=== PATIENT | female | born 1995 | race Caucasian/White ===

== ENCOUNTER 2017-03-24 21:13 | Inpatient (IN) | payer OTHER ==
[~2017-03-24] VITALS: Ht 157.5 cm; Wt 60.3 kg
--- NOTE | ~2017-03-24 | S ---
[facility] [place] [address] SURGICAL PATH RPT PROCEDURE Name: YAMILKA DECKER Room #: 419-P [facility] IN M.R.#: [id number] Admission: 03/24/17 Date of : 89 Discharge: 03/26/17 Report #: [id number] Path Case #: [id number] PATHOLOGY REPORT COLLECTION DATE: 03/25/2017 RECEIVED DATE: 03/25/2017 SUBMITTING PHYS: Dr. Shahbaz Jon, DO OTHER PHYS: SPECIMEN(S) RECEIVED: A.Appendix * * * * * * * * * * * * FINAL DIAGNOSIS: Appendix, appendectomy: - Moderate acute appendicitis. (IUV; 03/27/17) PATHOLOGIST: Talya Johnson M.D. REPORT ELECTRONICALLY SIGNED BY: Talya Johnson M.D. DATE/TIME: 03/27/2017 15:09 * * * * * * * * * * * * GROSS PATHOLOGY: Received in formalin labeled "Yamilka Decker appendix," is an appendix measuring 6.8 cm in length and 0.8 cm in diameter with a moderate amount of attached mesoappendix. The serosal surface is sprague-robison, smooth, and encased with adhesions. Sectioning reveals a dilated lumen containing translucent mucoid material. [employer] sections are submitted in cassette A1. (SDY; 03/26/2017) CLINICAL HISTORY: Acute appendicitis INITIAL CPT CODE(S): A; 46620 Professional services performed by [facility] at [facility] [address], [place] [address] Technical services performed by [facility] at [address] [place] [id number]. [facility] [address] [place] [address] SURGICAL PATH RPT PROCEDURE Name: YAMILKA DECKER Room #: 419-P [facility] IN M.R.#: [id number] Admission: 03/24/17 Date of : 89 Discharge: 03/26/17 Report #: [id number] Path Case #: [id number] [address] PHONE: [phone] DIRECTOR: Cesar Valles M.D. * * * END OF REPORT * * *
[2017-03-24 21:14] VITALS: BP 126/71
[2017-03-24 22:09] LABS: URINE BILIRUBIN NEGATIVE (Negative); URINE BLOOD 3+ (Negative); URINE COLOR YELLOW; URINE GLUCOSE-RANDOM* NEGATIVE (Negative); URINE KETONES NEGATIVE (Negative); URINE NITRITE NEGATIVE (Negative); URINE PROTEIN (DIPSTICK) NEGATIVE (Negative); URINE SPECIFIC GRAVITY 1.025 (1.003-1.035); URINE UROBILINOGEN 0.2 E.U./dl (0.2-1.0)
[2017-03-24 22:19] LABS: BACTERIA 1-9 Few /HPF (None Seen); CASTS None Seen /LPF (None Seen); CRYSTALS None Seen /LPF (None Seen); SQUAMOUS 0-3 Few /LPF (0-3); URINE RBC 3-10 Few /HPF (0-2); URINE WBC None Seen /HPF (0-5)
[2017-03-24 22:22] LABS: ABSOLUTE NEUTROPHILS 5.1 thou/uL (1.4-8.2); BASOPHILS 0.4 % (0.0-2.0); EOSINOPHILS 2.2 % (0.0-3.0); HEMATOCRIT 42.9 % (37.0-47.0); HEMOGLOBIN 14.7 gm/dL (12.0-15.0); LYMPHOCYTES 24.4 % (24.0-44.0); MCH 29.7 pg (26.0-34.0); MCHC 34.1 g/dL (28.0-37.0); MCV 87.1 fL (80.0-100.0); MONOCYTES 5.5 % (1.0-8.0); PLATELET COUNT 194 thou/uL (150-400); POLYS 67.5 % (36.0-66.0); RBC 4.93 mil/uL (4.20-5.00); RDW 12.7 % (10.5-14.5); WBC 7.6 thou/uL (4.0-11.0)
[2017-03-24 22:30] LABS: ANION GAP 14 mmol/L (7-16); BUN 10 mg/dL (7-18); CALCIUM 9.4 mg/dL (8.5-10.1); CHLORIDE 102 mmol/L (98-107); CO2 24 mmol/L (21-32); CREATININE 0.9 mg/dL (0.6-1.0); GLUCOSE 115 mg/dL (74-106); POTASSIUM 3.1 mmol/L (3.5-5.1); SODIUM 140 mmol/L (136-145)
[2017-03-24 22:35] LABS: MANUAL DIFF NO
[2017-03-24 22:36] LABS: ALBUMIN 4.4 g/dL (3.4-5.0); ALKALINE PHOSPHATASE 99 U/L (46-116); DIRECT BILIRUBIN < 0.1 mg/dL (<0.1-0.3); SGOT 42 U/L (15-37); SGPT 57 U/L (30-65); TOTAL BILIRUBIN 0.3 mg/dL (<0.1-1.0); TOTAL PROTEIN 8.3 g/dL (6.4-8.2)
[2017-03-25 00:15] VITALS: BP 131/64
[2017-03-25 01:11] VITALS: BP 121/74
[2017-03-25 05:30] VITALS: BP 131/67
[2017-03-25 07:57] VITALS: BP 112/66
[2017-03-25 12:20] VITALS: BP 122/71
[2017-03-25] MEDS ORDERED: NORCO 5-325 TA1 EAC1 PO (14:15)
[2017-03-25] MEDS ORDERED: ONDANSETRON HCL4 M2 PO (14:15)
[2017-03-25 20:00] VITALS: BP 116/63
[2017-03-26 04:00] VITALS: BP 99/47
[2017-03-26 07:54] VITALS: BP 105/54
[2017-03-26 12:31] VITALS: BP 105/54
== END 2017-03-26 13:01 | disposition home or self-care (01) | DRG 854 ==
LOC: ER 21:13 → EROBS 23:41 → 4E 23:41 → ENTRNSPT 03-26 12:55 → EDTRNSPTSTS 03-26 12:58 → 4E 03-26 13:01
PROVIDERS: Emergency Medicine
PROC: 0DTJ4ZZ Resection of Appendix, Percutaneous Endoscopic Approach (ICD-10-PCS; principal; 2017-03-25)
DX: A41.9 Sepsis, unspecified organism (principal); E87.6 Hypokalemia; K35.80 Unspecified acute appendicitis; Z79.1 Long term (current) use of non-steroidal anti-inflammatories (NSAID); Z79.899 Other long term (current) drug therapy
CPT/HCPCS: 10084; 50010; 50101; 50249; 50411; 50555; 50558; 50739; 50740; 50962; 51975; 52265; 53307; 53310; 54022; 54118; 56525; 56526; 62110; 62900; 70005